=== PATIENT | male | born 1980 | race Caucasian/White ===

== ENCOUNTER 2019-11-15 23:23 | Observation (INO) ==
[2019-11-15] MEDS ORDERED: DEXTROSE 50%-WATER 50 ML SYRG IV ONE (23:28)
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
[2019-11-15] MEDS ORDERED: DEXTROSE 10 % IN WATER 1,000 ML IV ONE (23:46)
[2019-11-16 00:05] LABS: Hemoglobin 12.1 gm/dL (13.5-18.0); Mean Cell Volume 84.1 fl (78-100); Mean Corpuscular Hemoglobin 29.1 pg (27-31); Mean Corpuscular Hgb Conc 34.6 g/dl (32-36); Mean Platelet Volume 9.9 fl (8-11.3); Neutrophil % 81.6 % (42-75.0); Platelet Count 348 K/mm3 (150-450); Red Blood Count 4.16 M/mm3 (4.7-6.0); Red Cell Distribution Width 12.1 % (11.5-14.0); White Blood Count 14.7 K/mm3 (4.0-10.5)
[2019-11-16] MEDS ORDERED: DEXTROSE 50%-WATER 50 ML SYRG IV ONE (00:12)
[2019-11-16 00:19] LABS: ALT 28 U/L (19-67); AST 23 U/L (0-48); Albumin * 3.2 gm/dl (3.4-5.0); Alkaline Phosphatase * 91 U/L (50-170); Anion Gap 7.9 mmol/L (6.8-13.8); BUN/Creatinine Ratio 19.5 (9.0-21.6); Bilirubin, Total 0.2 mg/dL (0.0-1.1); Blood Urea Nitrogen 34 mg/dL (6-23); Ca. Corrected For Albumin 9.2 mg/dL (8.4-10.2); Calcium * 8.9 mg/dL (7.9-10.9); Carbon Dioxide 30.4 mmol/L (24-32.6); Chloride 102 mmol/L (97-106); Glucose * 74 mg/dL (70-110); Potassium 3.3 mmol/L (3.4-4.6); Salicylate Less than 2.8 mg/dL (2.8-20.0); Sodium 137 mmol/L (132-142); Total Protein 7.1 gm/dL (6.2-8.2)
[2019-11-16 02:27] LABS: Urine Bilirubin Negative (NEGATIVE); Urine Blood 250 /ul (NEGATIVE); Urine Ketone Negative (NEGATIVE); Urine Nitrite Negative (NEGATIVE); Urine Protein 100 mg/dL (NEGATIVE); Urine Urobilinogen Normal (NORMAL)
[2019-11-16 02:33] LABS: Urine Appearance Clear (CLEAR); Urine Bacteria TRACE; Urine Color Yellow; Urine RBC TRACE /hpf (0-5); Urine WBC None Seen /hpf (0-5)
[2019-11-16 02:46] LABS: Cocaine Ur Negative (NEGATIVE); Urine Barbiturate Negative (NEGATIVE); Urine Benzodiazepines Negative (NEGATIVE); Urine Opiates Negative (NEGATIVE); Urine PCP Negative (NEGATIVE); Urine THC Negative (NEGATIVE)
[2019-11-16] MEDS ORDERED: POTASSIUM CHLORIDE IN WATER 100 ML IV ONE (03:18)
[2019-11-16 07:31] VITALS: BP 156/85
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
== END 2019-11-16 07:35 | disposition left against medical advice (07) ==
LOC: ER 23:23 → MS 23:23
PROVIDERS: ADMIT Family Medicine; ATTEND Family Medicine
CPT/HCPCS: 36415; 80053; 80307; 81001; 85025; 87086; 93005; 96365; 96366; 96375; 99284; 99285; G0480

== ENCOUNTER 2021-01-18 02:03 | Observation (INO) ==
[2021-01-18] MEDS ORDERED: GLUCAGON,HUMAN RECOMBINANT 1 MG VIAL IV ONE (02:08)
[2021-01-18] MEDS ORDERED: DEXTROSE 50%-WATER 50 ML SYRG IV ONE (02:08)
[2021-01-18] MEDS ORDERED: DEXTROSE 10 % IN WATER 1,000 ML IV SCH (02:15)
[2021-01-18] MEDS ORDERED: ONDANSETRON HCL/PF 2 MG/ML VIAL IV ONE (02:23)
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
[2021-01-18 02:34] LABS: Hematocrit 38.7 % (42.0-52.0); Hemoglobin 12.9 gm/dL (13.5-18.0); Mean Cell Volume 82.2 fl (78-100); Mean Corpuscular Hemoglobin 27.4 pg (27-31); Mean Corpuscular Hgb Conc 33.3 g/dl (32-36); Mean Platelet Volume 10.1 fl (8-11.3); Neutrophil # 10.1 K/mm3 (1.3-6.0); Neutrophil % 75.3 % (42-75.0); Platelet Count 317 K/mm3 (150-450); Red Blood Count 4.71 M/mm3 (4.7-6.0); Red Cell Distribution Width 12.8 % (11.5-14.0); White Blood Count 13.4 K/mm3 (4.0-10.5)
[2021-01-18 02:37] LABS: Anion Gap 11.9 mmol/L (6.8-13.8); BUN/Creatinine Ratio 15.4 (9.0-21.6); Bilirubin, Total 0.3 mg/dL (0.0-1.1); Ca. Corrected For Albumin 9.5 mg/dL (8.4-10.2); Carbon Dioxide 25.1 mmol/L (24-32.6)
[2021-01-18] MEDS ORDERED: METOCLOPRAMIDE HCL 5 MG/ML VIAL IV ONE (05:13)
[2021-01-18 08:18] LABS: Urine Bilirubin Negative (NEGATIVE); Urine Blood 50 /ul (NEGATIVE); Urine Ketone Negative (NEGATIVE); Urine Nitrite Negative (NEGATIVE); Urine Protein 100 mg/dL (NEGATIVE); Urine Urobilinogen Normal (NORMAL)
[2021-01-18 08:45] LABS: Urine Appearance Slightly Cloudy (CLEAR); Urine Bacteria TRACE; Urine Color Yellow; Urine RBC 0-5 /hpf (0-5); Urine Sperm Few - 1+; Urine WBC 0-5 /hpf (0-5)
[2021-01-18 08:46] LABS: Urine Mucus Few - 1+
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
[2021-01-18 11:19] VITALS: BP 155/88
[2021-01-18] MEDS ORDERED: INSULIN LISPRO 100 UNITS/ML VIAL SC SCH (12:00)
== END 2021-01-18 11:27 | disposition home or self-care (01) ==
LOC: ER 02:03 → MS 02:03
PROVIDERS: ADMIT Family Medicine; ATTEND Family Medicine